=== PATIENT | female | born 1955 | race Caucasian/White ===

== ENCOUNTER → 2018-02-28 | Outpatient (REF) | payer OTHER ==
[2018-02-28 13:01] LABS: FREE T4 1.47 NG/DL (0.76-1.46); THYROID STIMULATING HORMONE 1.84 uIU/ML (0.358-3.740)
== END ==
LOC: M LABDRAW1 11:16
PROVIDERS: ATTEND Physician Assistant
DX: E03.9 Hypothyroidism, unspecified (principal)

== ENCOUNTER → 2019-11-09 | Outpatient (REF) | payer OTHER | LOC: M LAB REF 13:09 | PROVIDERS: ATTEND Nurse Practitioner Family | DX: Z01.419 Encounter for gynecological examination (general) (routine) without abnormal findings (principal) ==

== ENCOUNTER → 2020-01-21 | Outpatient (CLI) | payer OTHER | LOC: M LABSMTC 13:15 | PROVIDERS: ATTEND Pediatrics | DX: Z20.828 Contact with and (suspected) exposure to other viral communicable diseases (principal) ==

== ENCOUNTER → 2022-06-17 | Outpatient (CLI) | payer MEDICARE, OTHER | LOC: M SOG 07:50 | PROVIDERS: ATTEND Physician Assistant | DX: M25.572 Pain in left ankle and joints of left foot (principal) ==

== ENCOUNTER 2024-03-05 10:09 | Day surgery (SDC) | payer OTHER ==
[~2024-03-05] VITALS: Ht 167.6 cm; Wt 86.2 kg
[~2024-03-05 10:09] MED LIST: ALBU8.5H INH; ASPI81CH48 PO; CENTCHW4 PO; D200CAP3 PO; FLUO40CA PO; HYDR-3490 PO; LR 1,000 ML IV SCH; METH-1164 PO; MIDAZOLAM INJ 2MG/2ML VIAL As Ordered ONE; OXYB15TA14 PO; SIMV20TA22 PO; SYNT125T PO; ZOLM5TAB20 PO; fentaNYL 100 MCG/2 ML INJECTION As Ordered ONE
[2024-03-05] MEDS: FLURBIPROFEN 0.03% OPHTH SOLN 2.5 ML OD SCH (12:45)
[2024-03-05] MEDS: TETRACAINE 0.5% OPHTH SOLN 4ML OD SCH (12:45)
[2024-03-05] MEDS: PHENYLEPHRINE 2.5% OPHTH SOL 2ML OD SCH (12:45)
[2024-03-05] MEDS: CYCLOPENTOLATE 1% OPHTH SOLN 2ML BTL OD SCH (12:45)
[2024-03-05] MEDS: LIDOCAINE 1% SDV 5ML VIAL As Ordered ONE (13:30)
[2024-03-05] MEDS: CEFUROXIME 1MG/0.1ML INTRACAMERAL INJ As Ordered ONE (13:30)
[2024-03-05 13:48] VITALS: BP 136/86; TEMP 98; O2SAT 99
== END 2024-03-05 14:15 | disposition home or self-care (01) ==
LOC: M SDC 10:09
PROVIDERS: ATTEND Ophthalmology
DX: H25.11 Age-related nuclear cataract, right eye (principal); I10 Essential (primary) hypertension; E03.9 Hypothyroidism, unspecified; E78.00 Pure hypercholesterolemia, unspecified; G43.909 Migraine, unspecified, not intractable, without status migrainosus; Z79.899 Other long term (current) drug therapy; Z79.890 Hormone replacement therapy; Z79.82 Long term (current) use of aspirin; Z88.2 Allergy status to sulfonamides
CPT/HCPCS: 66984; J0697; J2250; J3010; V2632

== ENCOUNTER 2024-04-09 08:06 | Day surgery (SDC) | payer OTHER ==
[~2024-04-09] VITALS: Ht 167.6 cm; Wt 85.5 kg
[~2024-04-09 08:06] MED LIST changes: -MIDAZOLAM INJ 2MG/2ML VIAL As Ordered ONE; -fentaNYL 100 MCG/2 ML INJECTION As Ordered ONE
[2024-04-09] MEDS: CYCLOPENTOLATE 1% OPHTH SOLN 2ML BTL OS SCH (08:34)
[2024-04-09] MEDS: PHENYLEPHRINE 2.5% OPHTH SOL 2ML OS SCH (08:34)
[2024-04-09] MEDS: TETRACAINE 0.5% OPHTH SOLN 4ML OS SCH (08:35)
[2024-04-09] MEDS: FLURBIPROFEN 0.03% OPHTH SOLN 2.5 ML OS SCH (08:35)
[2024-04-09] MEDS: LIDOCAINE 1% SDV 5ML VIAL As Ordered ONE (10:58)
[2024-04-09] MEDS: CEFUROXIME 1MG/0.1ML INTRACAMERAL INJ As Ordered ONE (10:58)
[2024-04-09] MEDS ORDERED: fentaNYL 100 MCG/2 ML INJECTION As Ordered ONE (10:58)
[2024-04-09] MEDS ORDERED: MIDAZOLAM INJ 2MG/2ML VIAL As Ordered ONE (10:58)
[2024-04-09 11:14] VITALS: BP 129/76; TEMP 97.9; O2SAT 96
== END 2024-04-09 11:49 | disposition home or self-care (01) ==
LOC: M SDC 08:06
PROVIDERS: ATTEND Ophthalmology
DX: H25.9 Unspecified age-related cataract (principal); Z88.2 Allergy status to sulfonamides; Z79.899 Other long term (current) drug therapy; Z98.41 Cataract extraction status, right eye
CPT/HCPCS: 66984; J0697; J2250; J3010; V2632